=== PATIENT | female | born 2000 | race Caucasian/White ===

== ENCOUNTER 2023-06-09 13:46 | Emergency (ER) | payer OTHER | END 2023-06-09 15:50 | disposition home or self-care (01) | LOC: MADERS 13:46 | DX: S61.032A Puncture wound without foreign body of left thumb without damage to nail, initial encounter (principal); F17.290 Nicotine dependence, other tobacco product, uncomplicated; W55.01XA Bitten by cat, initial encounter | CPT/HCPCS: 99283 ==

== ENCOUNTER 2024-03-13 21:01 | Emergency (ER) | payer BC, OTHER ==
[2024-03-13 21:35] LABS: Pregu Control Background? CLEAR/WHITE (CLR/WHITE); Pregu Control Bar Appear? YES (CONTROL BAR); Specific Gravity 1.015 (1.002-1.036)
[2024-03-13] MEDS ORDERED: Dexamethasone 10 MG/ML VIAL ONE (21:35)
[2024-03-13 21:37] LABS: Pregnancy Test - Urine (BHCG) Negative (Negative)
[2024-03-13] MEDS ORDERED: Ketorolac Tromethamine 60 MG/2 ML VIAL ONE (22:01)
== END 2024-03-13 22:48 | disposition home or self-care (01) ==
LOC: MADERS 21:01
DX: M25.531 Pain in right wrist (principal); F17.290 Nicotine dependence, other tobacco product, uncomplicated
CPT/HCPCS: 81025; 96372; J1100; J1885